=== PATIENT | male | born 1985 | race Caucasian/White ===

== ENCOUNTER 2017-10-06 13:32 | Emergency (ER) | payer SELFPAY ==
[2017-10-06] MEDS ORDERED: SMZ./TMP. 800/160 MG TABLET ONE (15:09)
[2017-10-06] MEDS ORDERED: DOXYCYCLINE 100 MG CAP PO ONE (15:10)
[2017-10-06] MEDS ORDERED: LIDOCAINE 1% W/EPI 1:100,000 MDV 50 ML VIAL ONE (15:10)
[2017-10-06] MEDS ORDERED: CEFAZOLIN/SWI 1gm 1 GM/10 ML SYR ONE (15:11)
[2017-10-06] MEDS ORDERED: NA CHLORIDE 0.9% 1,000 ML ONE (15:11)
[2017-10-06 15:39] LABS: Absolute Lymphocytes (CBC) 2.7 K/uL (0.7-4.9); Absolute Monocytes 0.6 K/uL (0.1-1.3); Absolute Neutrophil 5.6 K/uL (1.8-8.0); Basophils % 1.2 % (0-1.3); Eosinophils % 4.8 % (0-4.4); Hematocrit 46.6 % (39.6-49.0); Lymphocytes % 28.5 % (15.3-44.8); MCV 86.1 fL (80-100); MPV 7.9 fL (7.6-11.3); Monocytes % 6.4 % (3.3-12.3); RBC Red Blood Cell Count 5.41 M/uL (4.33-5.43)
--- NOTE | 2017-10-06 15:40 | RAD REPORT ---
EXAM DESCRIPTION: US - Extremity Nonvascular Limited - 10/06/2017 3:22 pm CLINICAL HISTORY: Palpable abnormality antecubital fossa. COMPARISON: None. TECHNIQUE: Real-time sonographic evaluation of the area of interest was performed. FINDINGS: Prominent skin thickening and subcutaneous edema within the subcutaneous fat and deeper ti ssues noted. Increased blood flow is seen on the Doppler interrogation to the region. This likely rep resents inflammation or infection. Interstitial fluid is present.
--- NOTE | 2017-10-06 15:46 | ER ---
Nurse's Notes [facility] Name: Ruddy Villa Age: 31 yrs Sex: Male : 1985 Arrival Date: 10/06/2017 Time: 13:34 Bed 28 Private MD: Diagnosis: Cutaneous abscess of left upper limb;Abuse of other non-psychoactive substances Presentation: 10/06 13:37 Presenting complaint: Patient states: starting Thursday it felt like a mosquito bite and tw2 it itched, but now its gotten worse and raised and red, its hot to the touch, LEFT AC. Transition of care: patient was not received from another setting of care. Onset of symptoms was October 06, 2017. Care prior to arrival: None. 13:37 Method Of Arrival: Ambulatory tw2 13:37 Acuity: ANASTASIYA 3 tw2 Historical: - Allergies: 13:39 No Known Allergies; tw2 - Home Meds: 13:39 None [Active]; tw2 - PMHx: 13:39 Anxiety; Hypertension; PTSD; tw2 - PSHx: 13:39 None; tw2 - Immunization history:: Adult Immunizations up to date, Last tetanus immunization: up to date. - Social history:: Smoking status: Patient uses tobacco products, denies chronic smoking, but will smoke occasionally, Patient uses street drugs, marijuana. - Family history:: not pertinent. Screenin:11 Abuse screen: Denies threats or abuse. Denies injuries from another. Nutritional aj1 screening: No deficits noted. Tuberculosis screening: No symptoms or risk factors identified. Assessment: 14:11 General: Appears in no apparent distress. uncomfortable, Behavior is calm, cooperative, aj1 appropriate for age. Pain: Complains of pain in left bicep. Neuro: Level of Consciousness is awake, alert, obeys commands, Oriented to person, place, time, situation, Speech is normal, Facial symmetry appears normal. Cardiovascular: Patient's skin is warm and dry. Respiratory: Airway is patent Respiratory effort is even, unlabored, Respiratory pattern is regular, symmetrical. GI: No signs and/or symptoms were reported involving the gastrointestinal system. : No signs and/or symptoms were reported regarding the genitourinary system. EENT: No signs and/or symptoms were reported regarding the EENT system. Derm: Abscess located on left bicep is quarter sized, is hot to touch, is red, is raised. 15:34 Reassessment: Patient and/or family updated on plan of care and expected duration. Pain kb1 level reassessed. Patient is alert, oriented x 3, equal unlabored respirations, skin warm/dry/pink. General: Behavior is anxious. 16:33 Reassessment: Patient appears in no apparent distress at this time. Patient and/or kb1 family updated on plan of care and expected duration. Pain level reassessed. Patient is alert, oriented x 3, equal unlabored respirations, skin warm/dry/pink. Vital Signs: 13:38 BP 123 / 90; Pulse 103; Resp 18; Temp 98.9(O); Pulse Ox 97% on R/A; Weight 94.35 kg; tw2 Height 5 ft. 11 in. (180.34 cm); Pain 8/10; 15:35 BP 149 / 89; Pulse 71; Resp 18; Pulse Ox 98% ; kb1 16:34 BP 128 / 89; Pulse 82; Resp 18; Pulse Ox 100% ; kb1 13:38 Body Mass Index 29.01 (94.35 kg, 180.34 cm) tw2 ED Course: 13:34 Patient arrived in ED. as 13:38 Triage completed. tw2 13:38 Arm band placed on. tw2 13:57 Yumiko Matos, PEDRO LUIS is Primary Nurse. aj1 14:09 Jhoan Anders MD is Attending Physician. prachi 14:11 Patient has correct armband on for positive identification. Bed in low position. Call aj1 light in reach. 14:11 No provider procedures requiring assistance completed. aj1 15:08 Patient taken to ultrasound. via wheelchair. hr 15:21 US Extrmty Nonvasular Limited: left ac abscess In Process Unspecified. EDMS 15:24 Patient moved back from ultrasound. hr 15:30 Inserted saline lock: 20 gauge in right antecubital area, using aseptic technique. kb1 Blood collected. 15:45 Delbert Colbert MD is Referral Physician. prachi 16:37 IV discontinued, intact, bleeding controlled, No redness/swelling at site. Pressure kb1 dressing applied. 16:37 Dressings: non-adherent dressing x 1 left antecubital area. kb1 Administered Medications: 15:37 Drug: NS 0.9% 1000 ml Route: IV; Rate: 1 bolus; Site: right antecubital; kb1 15:37 Drug: Doxycycline 200 mg Route: PO; kb1 16:03 Follow up: Response: No adverse reaction kb1 15:37 Drug: Bactrim (160 mg-800 mg (DS) 1 tablet Route: PO; kb1 16:03 Follow up: Response: No adverse reaction kb1 15:37 Drug: Ancef 1 grams Route: IVPB; Site: right antecubital; kb1 16:03 Follow up: Response: No adverse reaction kb1 15:38 Drug: Lidocaine-Epinephrine -1%: (1:100,000) 10 ml {Note: Placed at bedside for Dr. deny Anders.} Volume: 20 ml; Route: Infiltration; 16:21 Drug: Tetanus-Diphtheria Toxoid Adult 0.5 ml {Parts Fabricator: [employer]. Exp: kb1 01/29/2020. Lot #: [id number]. } Route: IM; Site: right deltoid; 16:34 Follow up: Response: No adverse reaction kb1 Outcome: 15:46 Discharge ordered by . prachi 16:39 Discharged to home ambulatory, with friend. kb1 16:39 Condition: stable 16:39 Discharge instructions given to patient, Instructed on discharge instructions, follow up and referral plans. medication usage, Demonstrated understanding of instructions, follow-up care, medications, Prescriptions given X 3. 16:39 Patient left the ED. kb1 Signatures: Dispatcher [employer] EDYumiko Moraes, RN RN aj1 Jhoan Anders MD MD cha Rod, Haley hr Martinez, Amelia as Wise, Tara, RN RN tw2 Idalia Singleton RN RN kb1
--- NOTE | 2017-10-06 15:46 | EDPHYS ---
Physician Documentation [facility] Name: Ruddy Villa Age: 31 yrs Sex: Male : 1985 Arrival Date: 10/06/2017 Time: 13:34 Bed 28 Private MD: ED Physician Jhoan Anders HPI: 10/06 14:53 This 31 yrs old Male presents to ER via Ambulatory with complaints of prachi Abscess, Arm Pain. 14:53 The patient presents with an abscess of the left antecubital area, The patient presents prachi with cellulitis of the left antecubital area. Description: The affected area is moderate sized, localized, erythematous. Onset: The symptoms/episode began/occurred 4 day(s) ago. Possible cause(s): ivda. Associated signs and symptoms: The patient has no apparent associated signs or symptoms. Severity of symptoms: At their worst the symptoms were moderate, in the emergency department the symptoms are unchanged. The patient has not experienced similar symptoms in the past. Historical: - Allergies: 13:39 No Known Allergies; tw2 - Home Meds: 13:39 None [Active]; tw2 - PMHx: 13:39 Anxiety; Hypertension; PTSD; tw2 - PSHx: 13:39 None; tw2 - Immunization history:: Adult Immunizations up to date, Last tetanus immunization: up to date. - Social history:: Smoking status: Patient uses tobacco products, denies chronic smoking, but will smoke occasionally, Patient uses street drugs, marijuana. - Family history:: not pertinent. ROS: 14:53 Constitutional: Negative for fever, chills, and weight loss, Eyes: Negative for injury, prachi pain, redness, and discharge, ENT: Negative for injury, pain, and discharge, Neck: Negative for injury, pain, and swelling, Cardiovascular: Negative for chest pain, palpitations, and edema, Respiratory: Negative for shortness of breath, cough, wheezing, and pleuritic chest pain, Abdomen/GI: Negative for abdominal pain, nausea, vomiting, diarrhea, and constipation, Back: Negative for injury and pain, : Negative for injury, bleeding, discharge, and swelling, Skin: Negative for injury, rash, and discoloration, Neuro: Negative for headache, weakness, numbness, tingling, and seizure, Psych: Negative for depression, anxiety, suicide ideation, homicidal ideation, and hallucinations, Allergy/Immunology: Negative for hives, rash, and allergies, Endocrine: Negative for neck swelling, polydipsia, polyuria, polyphagia, and marked weight changes, Hematologic/Lymphatic: Negative for swollen nodes, abnormal bleeding, and unusual bruising. 14:53 MS/extremity: Positive for pain, swelling, tenderness, of the left antecubital area. Exam: 14:53 Constitutional: This is a well developed, well nourished patient who is awake, alert, prachi and in no acute distress. Head/Face: Normocephalic, atraumatic. Eyes: Pupils equal round and reactive to light, extra-ocular motions intact. Lids and lashes normal. Conjunctiva and sclera are non-icteric and not injected. Cornea within normal limits. Periorbital areas with no swelling, redness, or edema. ENT: Nares patent. No nasal discharge, no septal abnormalities noted. Tympanic membranes are normal and external auditory canals are clear. Oropharynx with no redness, swelling, or masses, exudates, or evidence of obstruction, uvula midline. Mucous membranes moist. Neck: Trachea midline, no thyromegaly or masses palpated, and no cervical lymphadenopathy. Supple, full range of motion without nuchal rigidity, or vertebral point tenderness. No Meningismus. Chest/axilla: Normal chest wall appearance and motion. Nontender with no deformity. No lesions are appreciated. Cardiovascular: Regular rate and rhythm with a normal S1 and S2. No gallops, murmurs, or rubs. Normal PMI, no JVD. No pulse deficits. Respiratory: Lungs have equal breath sounds bilaterally, clear to auscultation and percussion. No rales, rhonchi or wheezes noted. No increased work of breathing, no retractions or nasal flaring. Abdomen/GI: Soft, non-tender, with normal bowel sounds. No distension or tympany. No guarding or rebound. No evidence of tenderness throughout. Back: No spinal tenderness. No costovertebral tenderness. Full range of motion. Male : Normal genitalia with no discharge or lesions. Skin: Warm, dry with normal turgor. Normal color with no rashes, no lesions, and no evidence of cellulitis. Neuro: Awake and alert, GCS 15, oriented to person, place, time, and situation. Cranial nerves II-XII grossly intact. Motor strength 5/5 in all extremities. Sensory grossly intact. Cerebellar exam normal. Normal gait. Psych: Awake, alert, with orientation to person, place and time. Behavior, mood, and affect are within normal limits. 14:53 Musculoskeletal/extremity: Extremities: grossly normal except: decreased ROM, erythema, pain, swelling, tenderness, ROM: intact in all extremities, full active range of motion, full passive range of motion, Circulation is intact in all extremities. Sensation intact. Joints: All joints appear normal with full range of motion. DVT Exam: negative Homans' sign noted on exam, no appreciated bluish discoloration, pain, swelling, tenderness, erythema, increased warmth. Vital Signs: 13:38 BP 123 / 90; Pulse 103; Resp 18; Temp 98.9(O); Pulse Ox 97% on R/A; Weight 94.35 kg; tw2 Height 5 ft. 11 in. (180.34 cm); Pain 8/10; 15:35 BP 149 / 89; Pulse 71; Resp 18; Pulse Ox 98% ; kb1 16:34 BP 128 / 89; Pulse 82; Resp 18; Pulse Ox 100% ; kb1 13:38 Body Mass Index 29.01 (94.35 kg, 180.34 cm) tw2 Procedures: 14:56 I \T\ D: Incision and drainage was performed for an abscess of the left Prepped with [facility] Betadine, Anesthetized with 10 ml's 1% Lidocaine w/ Epi. Incised with #11 blade. Drained moderate amount Packed with iodoform gauze, Dressing: sterile 4x4 gauze, the patient tolerated the procedure well. MDM: 14:09 Patient medically screened. [facility] 14:56 Data reviewed: vital signs, nurses notes, lab test result(s), radiologic studies, [facility] ultrasound. 10/06 14:53 Order name: CBC with Diff; Complete Time: 16:13 [facility] 10/06 14:53 Order name: Chem 7; Complete Time: 16:13 [facility] 10/06 14:53 Order name: US Extrmty Nonvasular Limited: left ac abscess [facility] 10/06 15:57 Order name: Wound Culture iw 10/06 14:53 Order name: Gloves, Sterile; Complete Time: 15:15 [facility] 10/06 14:53 Order name: Setup Suture Tray; Complete Time: 15:15 prachi Administered Medications: 15:37 Drug: NS 0.9% 1000 ml Route: IV; Rate: 1 bolus; Site: right antecubital; kb1 15:37 Drug: Doxycycline 200 mg Route: PO; kb1 16:03 Follow up: Response: No adverse reaction kb1 15:37 Drug: Bactrim (160 mg-800 mg (DS) 1 tablet Route: PO; kb1 16:03 Follow up: Response: No adverse reaction [facility] 15:37 Drug: Ancef 1 grams Route: IVPB; Site: right antecubital; kb1 16:03 Follow up: Response: No adverse reaction [facility] 15:38 Drug: Lidocaine-Epinephrine -1%: (1:100,000) 10 ml {Note: Placed at bedside for Dr. deny Anders.} Volume: 20 ml; Route: Infiltration; 16:21 Drug: Tetanus-Diphtheria Toxoid Adult 0.5 ml {Staff Research Associate: [employer]. Exp: kb1 01/29/2020. Lot #: [id number]. } Route: IM; Site: right deltoid; 16:34 Follow up: Response: No adverse reaction [facility] Disposition: 10/06/17 15:46 Discharged to Home. Impression: Cutaneous abscess of left upper limb, Abuse of other non-psychoactive substances. - Condition is Stable. - Discharge Instructions: Abscess, Incision and Drainage, Polysubstance Abuse, Abscess, [id number]-Noin. - Prescriptions for Ibuprofen 600 mg Oral Tablet - take 1 tablet by ORAL route every 8 hours As needed take with food; 21 tablet. Doxycycline Hyclate 100 mg Oral Tablet - take 1 tablet by ORAL route every 12 hours; 20 tablet. Bactrim DS 800- 160 mg Oral Tablet - take 1 tablet by ORAL route every 12 hours for 10 days; 20 tablet. - Medication Reconciliation Form, Thank You Letter, Antibiotic Education, Prescription Opioid Use form. - Follow up: Private Physician; When: 2 - 3 days; Reason: Recheck today's complaints, Continuance of care, Re-evaluation by your physician. Follow up: Delbert Colbert MD; When: 2 - 3 days; Reason: Recheck today's complaints, Re-evaluation by your physician. - Problem is new. - Symptoms have improved. Signatures: Dispatcher [employer] Jhoan Menard MD MD cha Wise, Tara, RN RN tw2 Idalia Singleton, RN RN kb1
[2017-10-06 15:49] LABS: Bicarbonate 32 mEq/L (21-31); Glucose Level 106 mg/dL (65-120); Potassium 3.7 mEq/L (3.6-5.0); Sodium Level 140 mEq/L (135-145)
[2017-10-06 15:50] LABS: BUN Blood Urea Nitrogen 11 mg/dL (6-20)
[2017-10-06] MEDS ORDERED: TETANUS & DIPHTHERIA TOX,ADULT 0.5 ML VIAL ONE (16:16)
== END 2017-10-06 16:39 | disposition home or self-care (01) ==
LOC: ER 13:32
DX: L02.414 Cutaneous abscess of left upper limb (principal); F55.8 Abuse of other non-psychoactive substances; F17.220 Nicotine dependence, chewing tobacco, uncomplicated
CPT/HCPCS: 36415; 76882; 80048; 85025; 87070; 87205; 90714; 96374; 99284; J0690; J7030

== ENCOUNTER 2017-10-21 11:08 | Emergency (ER) | payer SELFPAY ==
--- NOTE | 2017-10-21 13:06 | ER ---
Nurse's Notes [facility] Name: Ruddy Villa Age: 31 yrs Sex: Male : 1985 Arrival Date: 10/21/2017 Time: 11:11 Bed Waiting Private MD: Diagnosis: Presentation: 10/21 11:20 Presenting complaint: Patient states: Pain to left eye since yesterday. Reports left aj eye was matted upon waking up this AM. Patient would also like a return to work note from his last visit to this ER. Transition of care: patient was not received from another setting of care. Onset of symptoms was October 21, 2017. Initial Sepsis Screen: Does the patient meet any 2 criteria? No. Patient's initial sepsis screen is negative. Does the patient have a suspected source of infection? No. Patient's initial sepsis screen is negative. Care prior to arrival: None. 11:20 Method Of Arrival: Ambulatory aj 11:20 Acuity: ANASTASIYA 5 aj Triage Assessment: 11:21 General: Appears in no apparent distress. comfortable, Behavior is calm, cooperative, aj appropriate for age. Pain: Complains of pain in left eye. Neuro: Level of Consciousness is awake, alert, obeys commands, Oriented to person, place, time, situation, Appropriate for age. Respiratory: Airway is patent Respiratory effort is even, unlabored, Respiratory pattern is regular, symmetrical. Derm: Skin is intact, is healthy with good turgor, Skin is pink, warm \T\ dry. normal. Historical: - Allergies: 11:21 No Known Allergies; aj - PMHx: 11:21 Anxiety; Hypertension; PTSD; aj - PSHx: 11:21 None; aj - Immunization history:: Adult Immunizations up to date. - Social history:: Smoking status: Patient uses tobacco products, smokes one pack cigarettes per day. Assessment: 13:03 Reassessment: called twice, no answer from lobby. tw2 Vital Signs: 11:21 BP 131 / 82; Pulse 97; Resp 17; Temp 99.0; Pulse Ox 98% on R/A; Weight 95.25 kg; Height aj 5 ft. 10 in. (177.80 cm); Pain 6/10; 11:21 Body Mass Index 30.13 (95.25 kg, 177.80 cm) ED Course: 11:11 Patient arrived in ED. sb2 11:21 Triage completed. aj 11:21 Arm band placed on left wrist. Patient placed in waiting room, Patient notified of wait aj time. 12:59 Yi Fleming, RN is Primary Nurse. kr2 Administered Medications: No medications were administered Outcome: 13:06 Patient left the ED. tw2 Signatures: Leona Echavarria RN RN Suha Rivera RN RN tw2 Yi Fleming, RN RN kr2 Mariajose Hussein sb2 Corrections: (The following items were deleted from the chart) 11:23 11:20 Presenting complaint: Patient states: Pain to left eye since yesterday. Reports aj left eye was matted upon waking up aj
== END 2017-10-21 13:06 | disposition left against medical advice (07) ==
LOC: ER 11:08
DX: Z02.9 Encounter for administrative examinations, unspecified (principal)
CPT/HCPCS: 99281

== ENCOUNTER 2017-10-21 17:40 | Emergency (ER) | payer SELFPAY ==
[2017-10-21] MEDS ORDERED: FLUORESCEIN SODIUM 0.6 MG/WRAP ONE (18:21)
[2017-10-21] MEDS ORDERED: TETRACAINE HCL 0.5% 2ML OPTH ONE (18:22)
--- NOTE | 2017-10-21 18:32 | EDPHYS ---
Physician Documentation [facility] Name: Ruddy Villa Age: 31 yrs Sex: Male : 1985 Arrival Date: 10/21/2017 Time: 17:41 Bed 13 Private MD: ED Physician Placido Hussein HPI: 10/21 18:29 This 31 yrs old Male presents to ER via Ambulatory with complaints of Eye jr8 Pain, Redness of Eye. 18:29 The patient is experiencing pain, redness, tearing. Onset: The symptoms/episode jr8 began/occurred gradually, 2 day(s) ago. Duration: the symptoms are continuous. Aggravated by nothing. Alleviated by nothing. Associated signs and symptoms: Pertinent positives: None. Patient does not utilize any form of vision correction. Severity of symptoms: At their worst the symptoms were mild in the emergency department the symptoms are unchanged. The patient has not experienced similar symptoms in the past. The patient has not recently seen a physician. Historical: - Allergies: 17:50 No Known Allergies; aj - Home Meds: 17:50 None [Active]; aj - PMHx: 17:50 Anxiety; Hypertension; PTSD; aj - PSHx: 17:50 None; aj - Immunization history:: Adult Immunizations up to date, Last tetanus immunization: up to date. - Social history:: Smoking status: Patient uses tobacco products, smokes one-half pack cigarettes per day. ROS: 18:29 ENT: Negative for injury, pain, and discharge, Neck: Negative for injury, pain, and jr8 swelling, Cardiovascular: Negative for chest pain, palpitations, and edema, Respiratory: Negative for shortness of breath, cough, wheezing, and pleuritic chest pain, Abdomen/GI: Negative for abdominal pain, nausea, vomiting, diarrhea, and constipation, Back: Negative for injury and pain, MS/Extremity: Negative for injury and deformity, Skin: Negative for injury, rash, and discoloration, Neuro: Negative for headache, weakness, numbness, tingling, and seizure. 18:29 Eyes: Positive for pain, redness, tearing, of the left eye. Exam: 18:29 Head/Face: Normocephalic, atraumatic. ENT: Nares patent. No nasal discharge, no jr8 septal abnormalities noted. Tympanic membranes are normal and external auditory canals are clear. Oropharynx with no redness, swelling, or masses, exudates, or evidence of obstruction, uvula midline. Mucous membranes moist. Neck: Trachea midline, no thyromegaly or masses palpated, and no cervical lymphadenopathy. Supple, full range of motion without nuchal rigidity, or vertebral point tenderness. No Meningismus. Cardiovascular: Regular rate and rhythm with a normal S1 and S2. No gallops, murmurs, or rubs. Normal PMI, no JVD. No pulse deficits. Respiratory: Lungs have equal breath sounds bilaterally, clear to auscultation and percussion. No rales, rhonchi or wheezes noted. No increased work of breathing, no retractions or nasal flaring. Skin: Warm, dry with normal turgor. Normal color with no rashes, no lesions, and no evidence of cellulitis. MS/ Extremity: Pulses equal, no cyanosis. Neurovascular intact. Full, normal range of motion. Neuro: Awake and alert, GCS 15, oriented to person, place, time, and situation. Cranial nerves II-XII grossly intact. Motor strength 5/5 in all extremities. Sensory grossly intact. Cerebellar exam normal. Normal gait. 18:29 Eyes: Periorbital structures: appear normal, Pupils: equal, round, and reactive to light and accomodation, Extraocular movements: intact throughout, Conjunctiva: injected, in the left eye, tearing noted, in left eye, Corneas: abrasion, is not appreciated, foreign body, is not appreciated, a fluorescein strip employed to appreciate the findings, Sclera: no appreciated abnormality, Anterior chamber: normal, Lids and lashes: appear normal, Examination of the other eye reveals no obvious gross abnormality. Vital Signs: 17:50 BP 131 / 93; Pulse 122; Resp 19; Temp 99.2; Pulse Ox 97% on R/A; Weight 95.25 kg; aj Height 5 ft. 11 in. (180.34 cm); 17:50 Body Mass Index 29.29 (95.25 kg, 180.34 cm) aj MDM: 17:53 Patient medically screened. [facility] 18:29 Data reviewed: vital signs, nurses notes, and as a result, I will discharge patient. jr8 Data interpreted: Pulse oximetry: on room air is 97 %. Interpretation: normal. Counseling: I had a detailed discussion with the patient and/or guardian regarding: the historical points, exam findings, and any diagnostic results supporting the discharge/admit diagnosis, the need for outpatient follow up, an opthalmologist, to return to the emergency department if symptoms worsen or persist or if there are any questions or concerns that arise at home. Administered Medications: 18:30 Drug: Tetracaine Drops 0.5 % 1 drops {Note: adminstered by PA. Yuniel} Route: jl7 Ophthalmic; Site: left eye; Disposition: 19:03 Co-signature as Attending Physician, Placido Hussein MD. rn Disposition: 10/21/17 18:31 Discharged to Home. Impression: Conjunctivitis. - Condition is Stable. - Discharge Instructions: Conjunctivitis (Viral and Bacterial). - Prescriptions for Gentamicin 0.3 % Ophthalmic Drops - instill 2 drop by OPHTHALMIC route every 4 hours; 1 bottle. - Work release form, Medication Reconciliation Form, Thank You Letter, Antibiotic Education, Prescription Opioid Use form. - Follow up: Private Physician; When: 1 week; Reason: Recheck today's complaints, Continuance of care, Re-evaluation by your physician. - Problem is new. - Symptoms have improved. Signatures: Leona Echavarria, RN Placido Knutson MD MD rn Roszak, Josh, PA PA jr8 Marguerite Walker RN RN jl7
--- NOTE | 2017-10-21 18:32 | ER ---
Nurse's Notes [facility] Name: Ruddy Villa Age: 31 yrs Sex: Male : 1985 Arrival Date: 10/21/2017 Time: 17:41 Bed 13 Private MD: Diagnosis: Conjunctivitis Presentation: 10/21 17:49 Presenting complaint: Patient states: Left eye pain and redness since yesterday. aj Patient suspects something was in his eye. Transition of care: patient was not received from another setting of care. Mechanism of Injury: No Mechanism of Injury. The patient denies any loss of vision. Onset of symptoms was October 19, 2017. Initial Sepsis Screen: Does the patient meet any 2 criteria? No. Patient's initial sepsis screen is negative. Does the patient have a suspected source of infection? No. Patient's initial sepsis screen is negative. Care prior to arrival: None. 17:49 Method Of Arrival: Ambulatory 17:49 Acuity: ANASTASIYA 4 Triage Assessment: 17:50 General: Appears in no apparent distress. comfortable, Behavior is calm, cooperative, aj appropriate for age. Pain: Complains of pain in left eye Pain currently is 7 out of 10 on a pain scale. EENT: Reports pain in left eye. Neuro: Level of Consciousness is awake, alert, obeys commands, Oriented to person, place, time, situation, Appropriate for age. Respiratory: Airway is patent Respiratory effort is even, unlabored, Respiratory pattern is regular, symmetrical. Derm: Skin is intact, is healthy with good turgor, Skin is pink, warm \\T\\ dry. normal. Historical: - Allergies: 17:50 No Known Allergies; - Home Meds: 17:50 None [Active]; aj - PMHx: 17:50 Anxiety; Hypertension; PTSD; aj - PSHx: 17:50 None; aj - Immunization history:: Adult Immunizations up to date, Last tetanus immunization: up to date. - Social history:: Smoking status: Patient uses tobacco products, smokes one-half pack cigarettes per day. Screenin:20 Abuse screen: Denies threats or abuse. Denies injuries from another. Nutritional jl7 screening: No deficits noted. Tuberculosis screening: No symptoms or risk factors identified. Fall Risk None identified. Assessment: 18:20 General: Appears in no apparent distress. uncomfortable. Pain: Complains of pain in jl7 left eye Pain does not radiate. Pain currently is 6 out of 10 on a pain scale. at worst was 10 out of 10 on a pain scale. Quality of pain is described as burning, Pain began 2-3 days ago. Is continuous. Neuro: Level of Consciousness is awake, alert, obeys commands, Oriented to person, place, time, situation. Cardiovascular: Patient's skin is warm and dry. Respiratory: Airway is patent Respiratory effort is even, unlabored, Respiratory pattern is regular, symmetrical. EENT: Eyes pt reports "It feels scratchy and like there's something in there.". Sclera/Cornea are reddened in outer aspect of conjuctiva of left eye and inner aspect of conjunctiva of left eye. Vital Signs: 17:50 BP 131 / 93; Pulse 122; Resp 19; Temp 99.2; Pulse Ox 97% on R/A; Weight 95.25 kg; aj Height 5 ft. 11 in. (180.34 cm); 17:50 Body Mass Index 29.29 (95.25 kg, 180.34 cm) aj ED Course: 17:41 Patient arrived in ED. as 17:50 Triage completed. aj 17:50 Arm band placed on left wrist. Patient placed in an exam room. 17:53 Aleaxndr Brice [facility] 17:53 Placido Hussein MD is Attending Physician. [facility] 18:11 Marguerite Walker, PDERO LUIS is Primary Nurse. [facility] 18:20 Patient has correct armband on for positive identification. Bed in low position. Call [facility] light in reach. Side rails up X 1. Pulse ox on. NIBP on. 18:30 Assist provider with eye exam of left eye. using fluorescein stain, Performed by Alexandr CHEEK Patient tolerated well. 18:34 Patient did not have IV access during this emergency room visit. bernard Administered Medications: 18:30 Drug: Tetracaine Drops 0.5 % 1 drops {Note: adminstered by HAM Brice.} Route: bernard Ophthalmic; Site: left eye; Outcome: 18:31 Discharge ordered by . lara 18:38 Discharged to home ambulatory. Shan 18:38 Condition: stable 18:38 Discharge instructions given to patient, Instructed on discharge instructions, follow up and referral plans. medication usage, Demonstrated understanding of instructions, follow-up care, medications, Prescriptions given X 1. 18:45 Patient left the ED. jl7 Signatures: Leona Echavarria, RN RN Wendy Carter Josh, PA PA jr8 Leal, Jahala, RN RN jl7 Corrections: (The following items were deleted from the chart) 18:37 18:34 No provider procedures requiring assistance completed. jl7 jl7
== END 2017-10-21 18:45 | disposition home or self-care (01) ==
LOC: ER 17:40
DX: H10.32 Unspecified acute conjunctivitis, left eye (principal)
CPT/HCPCS: 99284

== ENCOUNTER 2017-12-09 00:39 | Emergency (ER) | payer SELFPAY ==
[2017-12-09] MEDS ORDERED: NA CHLORIDE 0.9% 1,000 ML ONE (00:49)
[2017-12-09 01:04] LABS: Absolute Lymphocytes (CBC) 3.2 K/uL (0.7-4.9); Absolute Monocytes 0.5 K/uL (0.1-1.3); Absolute Neutrophil 4.2 K/uL (1.8-8.0); Basophils % 0.8 % (0-1.3); Eosinophils % 5.4 % (0-4.4); Hematocrit 45.8 % (39.6-49.0); Lymphocytes % 37.6 % (15.3-44.8); MCH 29.8 pg (27.0-35.0); MCV 88.1 fL (80-100); MPV 7.7 fL (7.6-11.3); Monocytes % 5.8 % (3.3-12.3)
[2017-12-09 01:08] LABS: Potassium 3.6 mEq/L (3.6-5.0)
[2017-12-09] MEDS ORDERED: ONDANSETRON 4 MG/2 ML VIAL ONE (01:08)
[2017-12-09] MEDS ORDERED: MORPHINE 4 MG/ML SYR ONE (01:23)
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
[2017-12-09] MEDS ORDERED: HYDROCODONE/APAP 7.5/325 MG TAB ONE (03:47)
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
== END 2017-12-09 03:48 | disposition home or self-care (01) ==
LOC: ER 00:39
DX: S42.001A Fracture of unspecified part of right clavicle, initial encounter for closed fracture (principal); V28.4XXA Motorcycle driver injured in noncollision transport accident in traffic accident, initial encounter; I10 Essential (primary) hypertension
CPT/HCPCS: 36415; 70450; 71260; 72125; 74177; 80048; 85025; 96361; 96374; 96375; 99285; J2405; J7030; Q9967

== ENCOUNTER 2019-03-03 08:42 | Emergency (ER) | payer SELFPAY ==
[2019-03-03] MEDS ORDERED: NA CHLORIDE 0.9% 2,000 ML ONE (09:04)
[2019-03-03] MEDS ORDERED: ONDANSETRON 4 MG/2 ML VIAL ONE (09:04)
[2019-03-03 09:31] LABS: Absolute Lymphocytes (CBC) 1.3 K/uL (0.7-4.9); Basophils % 0.6 % (0-1.3); Hematocrit 42.2 % (39.6-49.0); Lymphocytes % 17.5 % (15.3-44.8); MPV 8.4 fL (7.6-11.3); RBC Red Blood Cell Count 4.83 M/uL (4.33-5.43)
[2019-03-03 09:47] LABS: ALT/SGPT 81 U/L (12-78); AST/SGOT 26 U/L (15-37); Albumin 3.7 g/dL (3.4-5.0); Alkaline Phosphatase 44 U/L (45-117); BUN Blood Urea Nitrogen 12 mg/dL (7-18); Bicarbonate 27 mmol/L (21-32); Bilirubin Direct 0.1 mg/dL (0-0.2); Bilirubin Total 0.2 mg/dL (0.2-1.0); Glucose Level 85 mg/dL (74-106); Lipase 408 U/L (73-393); Potassium 4.1 mmol/L (3.5-5.1); Protein, Total 6.7 g/dL (6.4-8.2); Sodium Level 144 mmol/L (136-145)
--- NOTE | 2019-03-03 10:47 | RAD REPORT ---
EXAM DESCRIPTION: CTAbdomen Pelvis W Contrast - 03/03/2019 10:05 am CLINICAL HISTORY: Abdominal pain. Abd pain;Nausea / vomiting COMPARISON: <Comparisons> TECHNIQUE: Biphasic CT imaging of the abdomen and pelvis was performed with 100 ml non-ionic IV cont rast. All CT scans are performed using dose optimization technique as appropriate and may include automated exposure control or mA/KV adjustment according to patient size. FINDINGS: The lung bases are clear. Mild periportal edema is seen in the liver. No biliary dilatation or focal liver mass. Spleen, pancre as, adrenal glands and kidneys are within normal limits. No bowel obstruction, free air, free fluid or abscess. The appendix is normal. No evidence of signi ficant lymphadenopathy. No suspicious bony findings. IMPRESSION: Mild periportal edema in the liver seen, suggest correlation with liver function tests. Elsewhere, no acute process demonstrated.
--- NOTE | 2019-03-03 11:53 | ER ---
Nurse's Notes [facility] Name: Ruddy Villa Age: 33 yrs Sex: Male : 1985 Arrival Date: 03/03/2019 Time: 08:44 Bed 17 Private MD: Diagnosis: Vomiting, unspecified;Diarrhea, unspecified Presentation: 03/03 08:59 Presenting complaint: N/V/D and upper abdominal pain x 1 week. Transition of care: hb patient was not received from another setting of care. Onset of symptoms was February 24, 2019. Risk Assessment: Do you want to hurt yourself or someone else? Patient reports no desire to harm self or others. Initial Sepsis Screen: Does the patient meet any 2 criteria? No. Patient's initial sepsis screen is negative. Does the patient have a suspected source of infection? No. Patient's initial sepsis screen is negative. Care prior to arrival: None. 08:59 Method Of Arrival: Ambulatory 08:59 Acuity: ANASTASIYA 3 hb Historical: - Allergies: 09:00 No Known Allergies; hb - Home Meds: 09:00 None [Active]; hb - PMHx: 09:00 Anxiety; Hypertension; PTSD; hb - PSHx: 09:00 Appendectomy; Hand - Right; hb - Immunization history:: Adult Immunizations up to date. - Social history:: Smoking status: Patient/guardian denies using tobacco. - Ebola Screening: : No symptoms or risks identified at this time. - Family history:: not pertinent. - Hospitalizations: : No recent hospitalization is reported. Screenin:01 Abuse screen: Denies threats or abuse. Denies injuries from another. Nutritional hb screening: No deficits noted. Tuberculosis screening: No symptoms or risk factors identified. Fall Risk None identified. Assessment: 09:01 General: see triage assessment. hb 10:00 Reassessment: Patient appears in no apparent distress at this time. Patient and/or hb family updated on plan of care and expected duration. Pain level reassessed. Patient is alert, oriented x 3, equal unlabored respirations, skin warm/dry/pink. 11:00 Reassessment: Patient appears in no apparent distress at this time. Patient and/or hb family updated on plan of care and expected duration. Pain level reassessed. Patient is alert, oriented x 3, equal unlabored respirations, skin warm/dry/pink. 12:00 Reassessment: Patient appears in no apparent distress at this time. Patient and/or hb family updated on plan of care and expected duration. Pain level reassessed. Patient is alert, oriented x 3, equal unlabored respirations, skin warm/dry/pink. Vital Signs: 09:00 BP 102 / 64; Pulse 69; Resp 16; Temp 98.1; Pulse Ox 100% on R/A; Weight 83.91 kg; hb Height 5 ft. 10 in. (177.80 cm); Pain 6/10; 10:00 BP 116 / 68; Pulse 59; Resp 15; Pulse Ox 99% ; hb 11:15 BP 113 / 69; Pulse 61; Resp 14; Pulse Ox 100% on R/A; hb 12:00 BP 118 / 69; Pulse 59; Resp 15; Pulse Ox 100% on R/A; hb 09:00 Body Mass Index 26.54 (83.91 kg, 177.80 cm) hb ED Course: 08:44 Patient arrived in ED. rg4 08:51 Placido Hussein MD is Attending Physician. rn 08:58 Nichole Marquez, PEDRO LUIS is Primary Nurse. hb 08:59 Triage completed. hb 09:00 Arm band placed on. hb 09:01 Patient has correct armband on for positive identification. Bed in low position. Call hb light in reach. Side rails up X 1. 09:19 Inserted saline lock: 20 gauge in right antecubital area, using aseptic technique. hb ,using aseptic technique. by Darryn RN Blood collected. 10:07 CT Abd/Pelvis - IV Contrast Only In Process Unspecified. EDMS 12:11 No provider procedures requiring assistance completed. IV discontinued, intact, hb bleeding controlled, No redness/swelling at site. Pressure dressing applied. Administered Medications: 09:18 Drug: Zofran 4 mg Route: IVP; Site: right antecubital; hb 10:00 Follow up: Response: No adverse reaction hb 09:19 Drug: NS 0.9% 1000 ml Route: IV; Rate: 1000 ml; Site: right antecubital; hb 10:40 Follow up: Response: No adverse reaction; IV Status: Completed infusion; IV Intake: hb 1000ml 09:19 Drug: NS 0.9% 1000 ml Route: IV; Rate: 1000 ml; Site: right antecubital; hb 10:35 Follow up: Response: No adverse reaction; IV Status: Completed infusion; IV Intake: hb 1000ml 12:02 Drug: LoMOTIL 2 tabs Route: PO; hb 12:05 Follow up: Response: Medication administered at discharge. hb Intake: 10:35 IV: 1000ml; Total: 1000ml. hb 10:40 IV: 1000ml; Total: 2000ml. hb Outcome: 11:52 Discharge ordered by . rn 12:11 Discharged to home ambulatory. hb 12:11 Condition: stable 12:11 Discharge instructions given to patient, Instructed on discharge instructions, follow up and referral plans. medication usage, Demonstrated understanding of instructions, follow-up care, medications, Prescriptions given X 4. 12:11 Patient left the ED. hb Signatures: Dispatcher [employer] EDPlacido Wallace MD MD rn Baxter, Heather, RN RN hb Garcia, Rubi rg4
--- NOTE | 2019-03-03 11:53 | EDPHYS ---
Physician Documentation [facility] Name: Ruddy Villa Age: 33 yrs Sex: Male : 1985 Arrival Date: 03/03/2019 Time: 08:44 Bed 17 Private MD: ED Physician Placido Hussein HPI: 03/03 10:34 This 33 yrs old Male presents to ER via Ambulatory with complaints of rn Vomiting/Diarrhea. 10:34 The patient presents to the emergency department with nausea, vomiting, diarrhea, rn abdominal pain. Onset: The symptoms/episode began/occurred 1 week(s) ago. Possible causes: unknown. The symptoms are aggravated by nothing. The symptoms are alleviated by nothing. Severity of symptoms: At their worst the symptoms were moderate in the emergency department the symptoms are unchanged. The patient has not experienced similar symptoms in the past. The patient has not recently seen a physician. Historical: - Allergies: 09:00 No Known Allergies; hb - Home Meds: 09:00 None [Active]; hb - PMHx: 09:00 Anxiety; Hypertension; PTSD; hb - PSHx: 09:00 Appendectomy; Hand - Right; hb - Immunization history:: Adult Immunizations up to date. - Social history:: Smoking status: Patient/guardian denies using tobacco. - Ebola Screening: : No symptoms or risks identified at this time. - Family history:: not pertinent. - Hospitalizations: : No recent hospitalization is reported. ROS: 10:34 Constitutional: Negative for fever, chills, and weight loss, Eyes: Negative for injury, rn pain, redness, and discharge, Neck: Negative for injury, pain, and swelling, Cardiovascular: Negative for chest pain, palpitations, and edema, Respiratory: Negative for shortness of breath, cough, wheezing, and pleuritic chest pain, Abdomen/GI: Negative for constipation MS/Extremity: Negative for injury and deformity, Skin: Negative for injury, rash, and discoloration, Neuro: Negative for headache, weakness, numbness, tingling, and seizure. Exam: 10:34 Constitutional: This is a well developed, well nourished patient who is awake, alert, rn and in no acute distress. Head/Face: Normocephalic, atraumatic. Eyes: Pupils equal round and reactive to light, extra-ocular motions intact. Lids and lashes normal. Conjunctiva and sclera are non-icteric and not injected. Cornea within normal limits. Periorbital areas with no swelling, redness, or edema. ENT: dry MM Cardiovascular: Regular rate and rhythm. No pulse deficits. Respiratory: No increased work of breathing, no retractions or nasal flaring. Abdomen/GI: soft, mild mid abd tenderness and epigastric tenderness MS/ Extremity: Pulses equal, no cyanosis. Neurovascular intact. Full, normal range of motion. Equal circumference. Neuro: Awake and alert, GCS 15, oriented to person, place, time, and situation. Cranial nerves II-XII grossly intact. Motor strength 5/5 in all extremities. Sensory grossly intact. Cerebellar exam normal. Normal gait. Vital Signs: 09:00 BP 102 / 64; Pulse 69; Resp 16; Temp 98.1; Pulse Ox 100% on R/A; Weight 83.91 kg; hb Height 5 ft. 10 in. (177.80 cm); Pain 6/10; 10:00 BP 116 / 68; Pulse 59; Resp 15; Pulse Ox 99% ; hb 11:15 BP 113 / 69; Pulse 61; Resp 14; Pulse Ox 100% on R/A; hb 12:00 BP 118 / 69; Pulse 59; Resp 15; Pulse Ox 100% on R/A; hb 09:00 Body Mass Index 26.54 (83.91 kg, 177.80 cm) hb MDM: 08:51 Patient medically screened. rn 11:50 Differential diagnosis: Nonspecific abd pain, gastritis, pancreatitis, viral rn gastroenteritis, gastroenteritis. Data reviewed: vital signs, nurses notes, lab test result(s), radiologic studies, CT scan, and as a result, I will discharge patient. Counseling: I had a detailed discussion with the patient and/or guardian regarding: the historical points, exam findings, and any diagnostic results supporting the discharge/admit diagnosis, lab results, radiology results, the need for outpatient follow up, to return to the emergency department if symptoms worsen or persist or if there are any questions or concerns that arise at home. Response to treatment: the patient's symptoms have markedly improved after treatment, and as a result, I will discharge patient. Special discussion: I discussed with the patient/guardian in detail that at this point there is no indication for admission to the hospital. It is understood, however, that if the symptoms persist or worsen the patient needs to return immediately for re-evaluation. ED course: Pt improved, ct no acute findings other than non-specific periportal edema, no trauma, no other findings, mild elevation of lipase but not high enough to call acute pancreatitis. Will dc home with return precautions, anti-emetics, and abx.. 03/03 08:59 Order name: Basic Metabolic Panel; Complete Time: 10:05 rn 03/03 08:59 Order name: CBC with Diff; Complete Time: 10: rn 03/03 08:59 Order name: Creatinine for Radiology; Complete Time: 10: rn 03/03 08:59 Order name: Hepatic Function; Complete Time: 10: rn 03/03 08:59 Order name: Lipase; Complete Time: 10: rn 03/03 08:59 Order name: CT Abd/Pelvis - IV Contrast Only; Complete Time: 11:00 rn 03/03 08:59 Order name: IV Saline Lock; Complete Time: 09:19 rn 03/03 08:59 Order name: Labs collected and sent; Complete Time: 09:19 rn Administered Medications: 09:18 Drug: Zofran 4 mg Route: IVP; Site: right antecubital; hb 10:00 Follow up: Response: No adverse reaction hb 09:19 Drug: NS 0.9% 1000 ml Route: IV; Rate: 1000 ml; Site: right antecubital; hb 10:40 Follow up: Response: No adverse reaction; IV Status: Completed infusion; IV Intake: hb 1000ml 09:19 Drug: NS 0.9% 1000 ml Route: IV; Rate: 1000 ml; Site: right antecubital; hb 10:35 Follow up: Response: No adverse reaction; IV Status: Completed infusion; IV Intake: hb 1000ml 12:02 Drug: LoMOTIL 2 tabs Route: PO; hb 12:05 Follow up: Response: Medication administered at discharge. hb Disposition: 03/03/19 11:52 Discharged to Home. Impression: Vomiting, unspecified, Diarrhea, unspecified. - Condition is Stable. - Discharge Instructions: Diarrhea, Adult, Nausea and Vomiting, Adult. - Prescriptions for Zofran ODT 4 mg Oral tablet,disintegrating - place 1 tablet by TRANSLINGUAL route every 8 hours As needed; 20 tablet. Cipro 500 mg Oral Tablet - take 1 tablet by ORAL route every 12 hours for 10 days; 20 tablet. Flagyl 500 mg Oral Tablet - take 1 tablet by ORAL route every 8 hours for 10 days; 30 tablet. Tylenol- Codeine #3 300-30 mg Oral Tablet - take 2 tablet by ORAL route every 6 hours As needed; 20 tablet. - Medication Reconciliation Form, Thank You Letter, Antibiotic Education, Prescription Opioid Use, Work release form form. - Follow up: Private Physician; When: As needed; Reason: Recheck today's complaints, Re-evaluation by your physician. - Problem is new. - Symptoms have improved. Signatures: Dispatcher [employer] EDMS Placido Hussein MD MD rn Baxter, Heather, RN RN hb Corrections: (The following items were deleted from the chart) 12:11 11:52 03/03/2019 11:52 Discharged to Home. Impression: Vomiting, unspecified; Diarrhea, hb unspecified. Condition is Stable. Forms are Medication Reconciliation Form, Thank You Letter, Antibiotic Education, Prescription Opioid Use. Follow up: Private Physician; When: As needed; Reason: Recheck today's complaints, Re-evaluation by your physician. Problem is new. Symptoms have improved. rn
[2019-03-03] MEDS ORDERED: DIPHENOX/ATROP SULF 1 TAB PO ONE (12:04)
== END 2019-03-03 12:11 | disposition home or self-care (01) ==
LOC: ER 08:42
DX: R19.7 Diarrhea, unspecified (principal); I10 Essential (primary) hypertension
CPT/HCPCS: 36415; 74177; 80048; 80076; 83690; 85025; 96361; 96374; 99284; J2405; J7030; Q9967

== ENCOUNTER 2019-05-31 04:21 | Emergency (ER) | payer OTHER ==
[2019-05-31] MEDS ORDERED: LORazepam 2 MG/ML VIAL ONE (04:31)
[2019-05-31 05:13] LABS: Absolute Lymphocytes (CBC) 1.9 K/uL (0.7-4.9); Hematocrit 40.1 % (39.6-49.0); RBC Red Blood Cell Count 4.72 M/uL (4.33-5.43)
[2019-05-31 05:29] LABS: Protime INR 1.15
[2019-05-31 05:35] LABS: ALT/SGPT 65 U/L (12-78); AST/SGOT 47 U/L (15-37); Albumin 4.4 g/dL (3.4-5.0); Alkaline Phosphatase 44 U/L (45-117); BUN Blood Urea Nitrogen 20 mg/dL (7-18); Bicarbonate 27 mmol/L (21-32); Bilirubin Direct 0.3 mg/dL (0-0.2); Glucose Level 53 mg/dL (74-106); Potassium 3.2 mmol/L (3.5-5.1); Protein, Total 7.6 g/dL (6.4-8.2); Sodium Level 136 mmol/L (136-145)
[2019-05-31] MEDS ORDERED: D50W 25 GM/50 ML SYRINGE/VIAL IV ONE (06:13)
--- NOTE | 2019-05-31 08:01 | EKG ---
Test Date: 2019-05-31 Test Time: 04:57:24 Paralegal Supervisor: PAWEL MEASUREMENT RESULTS: Intervals: Rate: 81 MT: 120 QRSD: 110 QT: 378 QTc: 439 [place]: P: 9 MT: 120 QRS: 47 T: 37 INTERPRETIVE STATEMENTS: Normal sinus rhythm Normal ECG Compared to ECG 03/29/2017 13:04:29 Sinus arrhythmia no longer present Electronically Signed On 05-31-19 08:00:18 FOUNDRY PATTERNMAKER by Clovis Cosme
[2019-05-31 11:36] LABS: Barbiturates NEGATIVE (NEGATIVE); Benzodiazepines NEGATIVE (NEGATIVE); Cocaine NEGATIVE (NEGATIVE); METHAMPHETAM POSITIVE (NEGATIVE); Methadone NEGATIVE (NEGATIVE); Opiates NEGATIVE (NEGATIVE); Phencyclidine NEGATIVE (NEGATIVE); THC Cannibis POSITIVE (NEGATIVE)
[2019-05-31] MEDS ORDERED: DIAZEPAM 5 MG TABLET ONE (12:56)
--- NOTE | 2019-05-31 14:14 | ER ---
Nurse's Notes [facility] Name: Ruddy Villa Age: 33 yrs Sex: Male : 1985 Arrival Date: 05/31/2019 Time: 04:22 Bed 6 Private MD: Diagnosis: Restlessness and agitation Presentation: 05/31 04:22 Presenting complaint: EMS states: they were toned out by PD for pt with "excited bb delirium", auditory and visual hallucinations. Pt went to PD to report problems with neighbors. Transition of care: patient was not received from another setting of care. Onset of symptoms was May 31, 2019. Risk Assessment: Do you want to hurt yourself or someone else? Unable to obtain. Initial Sepsis Screen: Does the patient meet any 2 criteria? No. Patient's initial sepsis screen is negative. Does the patient have a suspected source of infection? No. Patient's initial sepsis screen is negative. Care prior to arrival: None. 04:22 Method Of Arrival: EMS: [facility] bb 04:22 Acuity: ANASTASIYA 2 bb Historical: - Allergies: 04:26 cats; bb - Home Meds: 04:26 Unable to obtain [Active]; bb - PMHx: 04:26 Anxiety; Hypertension; PTSD; bb - PSHx: 04:26 Appendectomy; Hand - Right; bb - Immunization history:: Adult Immunizations unknown. - Social history:: Smoking status: unknown. - Ebola Screening: : No symptoms or risks identified at this time No symptoms or risks identified at this time. Screenin:35 Abuse screen: Denies threats or abuse. Nutritional screening: No deficits noted. ea Tuberculosis screening: No symptoms or risk factors identified. Fall Risk IV access (20 points). Assessment: 04:27 General: Appears uncomfortable, Behavior is anxious, restless. Pain: Denies pain. ea Neuro: Neuro: Level of Consciousness is awake, alert, obeys commands, Oriented to person, place, time, situation. Cardiovascular: Patient's skin is warm and dry. Respiratory: Airway is patent Respiratory effort is even, unlabored, Respiratory pattern is regular, symmetrical. Derm: Skin is pink, warm \\T\\ dry. 05:12 Reassessment: Patient and/or family updated on plan of care and expected duration. Pain ea level reassessed. Pt resting with eyes closed, respirations even and unlabored. Chest expansions even and symmetrical. No s/s of pain or discomfort noted at this time. 06:18 Reassessment: Patient and/or family updated on plan of care and expected duration. Pain ea level reassessed. Pt groggy. Awakes with verbal stimuli, pt denies pain, reports he is unable to urinate at this moment. Respirations even and unlabored. Chest expansions even and symmetrical. No s/s of pain or discomfort noted at this time. Patient denies pain at this time. 07:38 Reassessment: Patient appears in no apparent distress at this time. Pt resting at this sv time with eyes closed, respirations even and unlabored. 09:00 Reassessment: Patient appears in no apparent distress at this time. Pt appears to be sv resting with eyes closed at this time. Respirations even and unlabored. 10:00 Reassessment: Patient appears in no apparent distress at this time. Pt appears to be sv resting with eyes closed at this time. Respirations even and unlabored. 11:16 Reassessment: Patient appears in no apparent distress at this time. Patient and/or sv family updated on plan of care and expected duration. Pain level reassessed. Patient is alert, oriented x 3, equal unlabored respirations, skin warm/dry/pink. Pt awake and speaking on the phone. Pt is fidgety. Asking how long he will have to be here. Pt informed that we can start the transfer process once his urine results are back. Pt stated that he was hungry, ok to order food tray. Tray ordered. 12:20 Reassessment: Patient appears in no apparent distress at this time. Patient and/or sv family updated on plan of care and expected duration. Pain level reassessed. Patient is alert, oriented x 3, equal unlabored respirations, skin warm/dry/pink. Pt awake and is fidgity, stating he wants to know what the plan of care is. Pt asking if he can sign himself out. 12:37 Reassessment: Dr Hussein at the bedside speaking with the pt. sv 14:00 Reassessment: [facility] at the bedside. sv 14:33 Reassessment: Patient appears in no apparent distress at this time. Patient and/or sv family updated on plan of care and expected duration. Pain level reassessed. Patient is alert, oriented x 3, equal unlabored respirations, skin warm/dry/pink. 14:33 Reassessment: Pt given him his belongings including his cell phone. sv Vital Signs: 04:22 BP 128 / 84; Pulse 110; Resp 20; Temp 97.2; Pulse Ox 98% on R/A; Weight 95.25 kg; ea Height 5 ft. 9 in. (175.26 cm); Pain 0/10; 06:21 BP 118 / 72; Pulse 71; Resp 18; Pulse Ox 98% on R/A; ea 07:37 BP 106 / 71; Pulse 75; Resp 16; Pulse Ox 95% ; sv 08:33 BP 106 / 73; Pulse 68; Resp 16; Pulse Ox 96% ; sv 09:32 BP 114 / 66; Pulse 66; Resp 15; Pulse Ox 96% ; sv 10:00 BP 106 / 73; Pulse 70; Resp 15; Pulse Ox 97% ; sv 11:00 BP 141 / 92; Pulse 96; Resp 18; Pulse Ox 100% ; sv 12:00 BP 120 / 77; Pulse 92; Resp 20; Pulse Ox 97% ; sv 13:18 BP 127 / 80; Pulse 88; Resp 18; Pulse Ox 99% ; sv 04:22 Body Mass Index 31.01 (95.25 kg, 175.26 cm) ea ED Course: 04:20 Inserted saline lock: 20 gauge in left antecubital area, using aseptic technique. Blood ds4 collected. 04:22 Patient arrived in ED. ea 04:24 Triage completed. bb 04:26 Dakotah Bhatt MD is Attending Physician. tw4 04:26 Patient has correct armband on for positive identification. Bed in low position. Call ea light in reach. 04:26 Arm band placed on right wrist. Patient placed in an exam room, on a stretcher, on ea pulse oximetry. 04:36 Karime Guzman RN is Primary Nurse. ea 07:29 Primary Nurse role handed off by Karime Guzman RN sv 07:29 Hyacinth Richardson, PEDRO LUIS is Primary Nurse. sv 11:00 Urine collected: clean catch specimen. sv 11:16 Awaiting lab results. sv 14:33 No provider procedures requiring assistance completed. IV discontinued, intact, sv bleeding controlled, No redness/swelling at site. Pressure dressing applied. Administered Medications: 04:34 Drug: Ativan 1 mg Route: IVP; Site: left antecubital; lp1 05:12 Follow up: Response: No adverse reaction; Anxiety decreased ea 06:16 Drug: D50W 50 ml Route: IVP; Site: left antecubital; ea 07:00 Follow up: Response: No adverse reaction sv 12:56 Drug: Valium 5 mg Route: PO; sv 13:30 Follow up: Response: No adverse reaction sv Output: 11:15 Urine: 500ml (Voided); Total: 500ml. sv Outcome: 14:14 Discharge ordered by MD. rn 14:33 Discharged to home ambulatory, with family. sv 14:33 Condition: stable 14:33 Discharge instructions given to patient, Instructed on discharge instructions, follow up and referral plans. Demonstrated understanding of instructions, follow-up care. 14:33 Patient left the ED. sv Signatures: Hyacinth Richardson RN Mei Millard RN Placido Fernández MD MD rn Pena, Laura, RN RN lp1 Jarvis Jhaveri ds4 Karime Guzman RN RN ea Wadley, Terrence, MD MD tw4 Corrections: (The following items were deleted from the chart) 06:40 06:18 Reassessment: Patient and/or family updated on plan of care and expected ea duration. Pain level reassessed. Patient is alert, oriented x 3, equal unlabored respirations, skin warm/dry/pink. Patient denies pain at this time. ea 13:18 12:00 Pulse 92bpm; Resp 20bpm; Pulse Ox 97%; sv sv
--- NOTE | 2019-05-31 14:15 | EDPHYS ---
Physician Documentation [facility] Name: Ruddy Villa Age: 33 yrs Sex: Male : 1985 Arrival Date: 05/31/2019 Time: 04:22 Bed 6 Private MD: ED Physician Dakotah Bhatt HPI: 05/31 05:07 This 33 yrs old Male presents to ER via EMS with complaints of paranoid. tw4 05:07 The patient presents to the emergency department with paranoia, psychosis, has tw4 experienced auditory hallucinations, has experienced visual hallucinations. Onset: The symptoms/episode began/occurred today. Past psychiatric history: Prior diagnosis: no previous psychiatric diagnosis known. The patient presents with agitation, trouble concentrating. Associated signs and symptoms: The patient has no apparent associated signs or symptoms. Associated signs and symptoms: The patient has no apparent associated signs or symptoms. Patient's baseline: Neuro: alert and fully oriented. Historical: - Allergies: 04:26 cats; bb - Home Meds: 04:26 Unable to obtain [Active]; bb - PMHx: 04:26 Anxiety; Hypertension; PTSD; bb - PSHx: 04:26 Appendectomy; Hand - Right; bb - Immunization history:: Adult Immunizations unknown. - Social history:: Smoking status: unknown. - Ebola Screening: : No symptoms or risks identified at this time No symptoms or risks identified at this time. ROS: 05:07 Constitutional: Negative for fever, chills, and weight loss, Eyes: Negative for injury, tw4 pain, redness, and discharge, Cardiovascular: Negative for chest pain, palpitations, and edema, Respiratory: Negative for shortness of breath, cough, wheezing, and pleuritic chest pain, Abdomen/GI: Negative for abdominal pain, nausea, vomiting, diarrhea, and constipation, Back: Negative for injury and pain, MS/Extremity: Negative for injury and deformity, Skin: Negative for injury, rash, and discoloration. 05:07 Neuro: Positive for 05:07 Psych: Positive for anxiety, auditory hallucinations, visual hallucinations. Exam: 05:07 Constitutional: This is a well developed, well nourished patient who is awake, alert, tw4 and in no acute distress. Head/Face: Normocephalic, atraumatic. Eyes: Pupils equal round and reactive to light, extra-ocular motions intact. Lids and lashes normal. Conjunctiva and sclera are non-icteric and not injected. Cornea within normal limits. Periorbital areas with no swelling, redness, or edema. Chest/axilla: Normal chest wall appearance and motion. Nontender with no deformity. No lesions are appreciated. Cardiovascular: Regular rate and rhythm with a normal S1 and S2. No gallops, murmurs, or rubs. Normal PMI, no JVD. No pulse deficits. Respiratory: Lungs have equal breath sounds bilaterally, clear to auscultation and percussion. No rales, rhonchi or wheezes noted. No increased work of breathing, no retractions or nasal flaring. Abdomen/GI: Soft, non-tender, with normal bowel sounds. No distension or tympany. No guarding or rebound. No evidence of tenderness throughout. Back: No spinal tenderness. No costovertebral tenderness. Full range of motion. Vital Signs: 04:22 BP 128 / 84; Pulse 110; Resp 20; Temp 97.2; Pulse Ox 98% on R/A; Weight 95.25 kg; ea Height 5 ft. 9 in. (175.26 cm); Pain 0/10; 06:21 BP 118 / 72; Pulse 71; Resp 18; Pulse Ox 98% on R/A; ea 07:37 BP 106 / 71; Pulse 75; Resp 16; Pulse Ox 95% ; sv 08:33 BP 106 / 73; Pulse 68; Resp 16; Pulse Ox 96% ; sv 09:32 BP 114 / 66; Pulse 66; Resp 15; Pulse Ox 96% ; sv 10:00 BP 106 / 73; Pulse 70; Resp 15; Pulse Ox 97% ; sv 11:00 BP 141 / 92; Pulse 96; Resp 18; Pulse Ox 100% ; sv 12:00 BP 120 / 77; Pulse 92; Resp 20; Pulse Ox 97% ; sv 13:18 BP 127 / 80; Pulse 88; Resp 18; Pulse Ox 99% ; sv 04:22 Body Mass Index 31.01 (95.25 kg, 175.26 cm) ea MDM: 04:26 Patient medically screened. tw4 07:04 Differential diagnosis: drug withdrawal. acute psychotic break, depression. Data tw4 reviewed: vital signs, nurses notes. Data interpreted: Pulse oximetry: Interpretation: normal. Test interpretation: by ED physician or midlevel provider: ECG. Counseling: I had a detailed discussion with the patient and/or guardian regarding: the historical points, exam findings, and any diagnostic results supporting the discharge/admit diagnosis, lab results. ED course: Pt will need mobile psych assessment. 14:12 ED course: Pt sober, awake, fidgety but pleasant, evaluated by [facility] and deemed rn safe for outpt treatment, has appt. Patient + for meth and states found meth while doing laundry, not sure who it belongs to. Denies suicidal/homicidal ideation/hallucinations. . 12 04:28 Order name: Urine Drug Screen; Complete Time: 11:45 tw4 05/31 05:01 Order name: Basic Metabolic Panel; Complete Time: 07:03 EDMS 05/31 07:03 Interpretation: Normal except: K 3.2; BUN 20; GFR 84; GLUC 53. tw4 05/31 05:01 Order name: Liver (Hepatic) Function; Complete Time: 07:03 EDMS 05/31 07:03 Interpretation: Normal except: ALK 44; AST 47; BILID 0.3. tw4 05/31 05:01 Order name: Acetaminophen Level; Complete Time: 07:03 EDMS 05/31 07:03 Interpretation: Within normal limits: ACETA < 2.0. tw4 05/31 05:02 Order name: Alcohol Serum/Plasma; Complete Time: 07:03 EDMS 05/31 07:03 Interpretation: Within normal limits: ETOH 4. tw4 05/31 05:02 Order name: Salicylates Level; Complete Time: 07:03 EDMS 05/31 07:03 Interpretation: Within normal limits: TRISTA < 1.7. tw4 05/31 04:28 Order name: EKG; Complete Time: 05:11 tw4 05/31 04:28 Order name: EKG - Nurse/Tech; Complete Time: 05:00 tw4 05/31 04:28 Order name: IV Saline Lock; Complete Time: 04:33 tw4 05/31 04:28 Order name: Labs collected and sent; Complete Time: 04:33 tw4 05/31 04:28 Order name: Urine Dipstick-Ancillary (obtain specimen); Complete Time: 11:15 tw4 05/31 05:02 Order name: CBC with Automated Diff; Complete Time: 07:03 EDMS 05/31 07:03 Interpretation: Normal except: MN% 12.4. tw4 05/31 05:02 Order name: Protime (+INR); Complete Time: 07:03 EDMS 12 07:03 Interpretation: Within normal limits: PT 13.5. tw4 12 05:02 Order name: PTT, Activated Partial Thromb; Complete Time: 07:03 EDMS 12 07:03 Interpretation: Within normal limits: PTT 32.2. tw4 05/31 11:08 Order name: Diet Heart Healthy; Complete Time: 11:08 sv 12 12:44 Order name: Diet Regular; Complete Time: 12:45 ss EC:04 Rate is 81 beats/min. Rhythm is regular. QRS [place] is Normal. MD interval is normal. QRS tw4 interval is normal. QT interval is normal. No Q waves. T waves are Normal. No ST changes noted. Clinical impression: Normal ECG. Interpreted by me. Reviewed by me. Administered Medications: 04:34 Drug: Ativan 1 mg Route: IVP; Site: left antecubital; lp1 05:12 Follow up: Response: No adverse reaction; Anxiety decreased ea 06:16 Drug: D50W 50 ml Route: IVP; Site: left antecubital; ea 07:00 Follow up: Response: No adverse reaction sv 12:56 Drug: Valium 5 mg Route: PO; sv 13:30 Follow up: Response: No adverse reaction sv Disposition: 05/31/19 14:14 Discharged to Home. Impression: Restlessness and agitation. - Condition is Stable. - Discharge Instructions: Generalized Anxiety Disorder. - Medication Reconciliation Form, Thank You Letter, Antibiotic Education, Prescription Opioid Use form. - Follow up: Private Physician; When: As needed; Reason: Recheck today's complaints, Re-evaluation by your physician. - Problem is new. - Symptoms have improved. Signatures: Dispatcher [employer] Hyacinth Samano RN Mei Millard RN Placido Fernández MD MD rn Pena, Laura, RN RN lp1 Karime Guzman RN RN ea Wadley, Terrence, MD MD tw4 Corrections: (The following items were deleted from the chart) 05:09 05:07 Constitutional: Negative for fever, chills, and weight loss, Eyes: Negative for tw4 injury, pain, redness, and discharge, Cardiovascular: Negative for chest pain, palpitations, and edema, Respiratory: Negative for shortness of breath, cough, wheezing, and pleuritic chest pain, Abdomen/GI: Negative for abdominal pain, nausea, vomiting, diarrhea, and constipation, Back: Negative for injury and pain, MS/Extremity: Negative for injury and deformity, Skin: Negative for injury, rash, and discoloration, Neuro: Negative for headache, weakness, numbness, tingling, and seizure, tw4 05:17 05:11 ACETAMINOPHEN+C.LAB.BRZ ordered. EDMS EDMS 05:17 05:11 BASIC METABOLIC PANEL+C.LAB.BRZ ordered. EDMS EDMS 05:17 05:11 CBC+H.LAB.BRZ ordered. EDMS EDMS 05:17 05:11 ETHANOL+C.LAB.BRZ ordered. EDMS EDMS 05:17 05:11 HEPATIC FUNCTION+C.LAB.BRZ ordered. EDMS EDMS 05:18 05:11 PROTIME (+INR)+COAG.LAB.BRZ ordered. EDMS EDMS 05:18 05:11 PTT, ACTIVATED+COAG.LAB.BRZ ordered. EDMS EDMS 05:18 05:11 SALICYLATE+C.LAB.BRZ ordered. EDMS EDMS 14:33 14:14 05/31/2019 14:14 Discharged to Home. Impression: Restlessness and agitation. sv Condition is Stable. Forms are Medication Reconciliation Form, Thank You Letter, Antibiotic Education, Prescription Opioid Use. Follow up: Private Physician; When: As needed; Reason: Recheck today's complaints, Re-evaluation by your physician. Problem is new. Symptoms have improved. rn
[2019-05-31 15:32] VITALS: TEMP 97.2
[2019-05-31 15:45] VITALS: BP 127/80; O2SAT 99
== END 2019-05-31 14:33 | disposition home or self-care (01) ==
LOC: ER 04:21
DX: R45.1 Restlessness and agitation (principal); I10 Essential (primary) hypertension; J30.81 Allergic rhinitis due to animal (cat) (dog) hair and dander
CPT/HCPCS: 36415; 80048; 80076; 80307; 80320; 80329; 85025; 85610; 85730; 93005; 96374; 96375; 99284

== ENCOUNTER 2019-06-14 16:11 | Emergency (ER) | payer OTHER ==
[2019-06-14 16:45] LABS: Absolute Lymphocytes (CBC) 1.2 K/uL (0.7-4.9); Hematocrit 39.9 % (39.6-49.0); Lymphocytes % 24.3 % (15.3-44.8); MPV 8.5 fL (7.6-11.3); RBC Red Blood Cell Count 4.79 M/uL (4.33-5.43)
[2019-06-14 16:52] LABS: Protime INR 1.06
[2019-06-14] MEDS ORDERED: NA CHLORIDE 0.9% 1,000 ML ONE (16:53)
--- NOTE | 2019-06-14 17:01 | RAD REPORT ---
EXAM DESCRIPTION: RAD - Chest Single View - 06/14/2019 4:48 pm CLINICAL HISTORY: Chest pain COMPARISON: None. TECHNIQUE: AP portable chest image was obtained 1636 hours . FINDINGS: Lung volumes are relatively low. No focal mass or consolidation. Low lung volumes accentua te interstitial pattern potentially masking minimal edema or infiltrate. Heart and vasculature are no rmal. No measurable pleural effusion and no pneumothorax. No acute bony abnormality seen. No acute ao rtic findings suspected. IMPRESSION: No focal mass or consolidation. Low lung volumes could mask minimal interstitial edema or infiltrate.
[2019-06-14] MEDS ORDERED: ASPIRIN 81 MG CHEWABLE TABLET ONE (17:08)
[2019-06-14] MEDS ORDERED: NITROGLYCERIN 0.4 MG/TAB SL ONE (17:09)
[2019-06-14] MEDS ORDERED: ONDANSETRON 4 MG/2 ML VIAL ONE (17:49)
[2019-06-14 18:07] LABS: ALT/SGPT 44 U/L (12-78); AST/SGOT 22 U/L (15-37); Albumin 4.2 g/dL (3.4-5.0); Alkaline Phosphatase 44 U/L (45-117); BUN Blood Urea Nitrogen 8 mg/dL (7-18); Bicarbonate 21 mmol/L (21-32); Bilirubin Direct 0.3 mg/dL (0-0.2); Glucose Level 102 mg/dL (74-106); Potassium 3.3 mmol/L (3.5-5.1); Protein, Total 7.2 g/dL (6.4-8.2); Sodium Level 141 mmol/L (136-145); Troponin (Emerg Dept Use Only) < 0.02 ng/mL (0.0-0.045)
[2019-06-14] MEDS ORDERED: PROMETHAZINE 25 MG/ML VIAL ONE ×2 (18:26→18:27)
[2019-06-14] MEDS ORDERED: NA CHLORIDE 0.9% 500 ML ONE (18:26)
[2019-06-14 19:31] LABS: Barbiturates NEGATIVE (NEGATIVE); Benzodiazepines POSITIVE (NEGATIVE); Cocaine NEGATIVE (NEGATIVE); METHAMPHETAM POSITIVE (NEGATIVE); Methadone NEGATIVE (NEGATIVE); Opiates NEGATIVE (NEGATIVE); Phencyclidine NEGATIVE (NEGATIVE); THC Cannibis POSITIVE (NEGATIVE)
--- NOTE | 2019-06-14 19:55 | ER ---
Nurse's Notes [facility] Name: Ruddy Villa Age: 33 yrs Sex: Male : 1985 Arrival Date: 06/14/2019 Time: 16:12 Bed 19 Private MD: Diagnosis: Drug Abuse;Chest pain, unspecified;Vomiting Presentation: 06/14 16:17 Presenting complaint: Patient states: my chest is hurting. and I can't breathe. rv Presenting complaint: EMS states: he called in for difficulty breathing. when we got there he is slightly tachycardic at 106 and tachypneic. complaining of headache. he used dope, as per patient, yesterday but not today. denies use of other drugs. blood sugar is 112. noticed pinpoint pupils. Transition of care: patient was not received from another setting of care. Onset of symptoms was June 14, 2019 at 15:00. Risk Assessment: Do you want to hurt yourself or someone else? Patient reports no desire to harm self or others. Initial Sepsis Screen: Does the patient meet any 2 criteria? No. Patient's initial sepsis screen is negative. Does the patient have a suspected source of infection? No. Patient's initial sepsis screen is negative. Care prior to arrival: None. 16:17 Method Of Arrival: EMS: [facility] rv 16:17 Acuity: ANASTASIYA 3 rv Historical: - Allergies: 16:22 cats; rv - PMHx: 16:22 Anxiety; Hypertension; PTSD; rv - PSHx: 16:22 Appendectomy; rv - Immunization history:: Adult Immunizations unknown. - Social history:: Smoking status: Patient uses tobacco products. - Ebola Screening: : No symptoms or risks identified at this time. Screenin:25 Abuse screen: Denies threats or abuse. Denies injuries from another. Nutritional rv screening: No deficits noted. Tuberculosis screening: No symptoms or risk factors identified. Fall Risk None identified. Assessment: 16:23 General: Appears in no apparent distress. Behavior is crying. Pain: Complains of pain rv in chest. Neuro: Level of Consciousness is awake, alert, obeys commands, Oriented to person, place, time, situation. Cardiovascular: Patient's skin is warm and dry. Respiratory: Airway is patent Respiratory pattern is hyperventilation. GI: No signs and/or symptoms were reported involving the gastrointestinal system. : No signs and/or symptoms were reported regarding the genitourinary system. EENT: No signs and/or symptoms were reported regarding the EENT system. Derm: Skin is intact. Musculoskeletal: No signs and/or symptoms reported regarding the musculoskeletal system. 18:58 Reassessment: No changes from previously documented assessment. Patient and/or family rv updated on plan of care and expected duration. Pain level reassessed. Patient is alert, oriented x 3, equal unlabored respirations, skin warm/dry/pink. patient updated on the plan of care. vomiting decreased after giving Phenergan. awaiting result on the urine exam. Vital Signs: 16:21 BP 132 / 94; Pulse 110; Resp 24; Temp 97.2; Pulse Ox 100% on R/A; Weight 72.57 kg; rv Height 5 ft. 9 in. (175.26 cm); 17:04 BP 142 / 83; Pulse 97; Resp 26; Pulse Ox 100% on R/A; rv 18:00 BP 117 / 79; Pulse 74; Resp 17; Pulse Ox 100% ; rv 18:30 BP 125 / 69; Pulse 72; Resp 17; Pulse Ox 100% on R/A; rv 19:00 BP 117 / 78; Pulse 76; Resp 20; Pulse Ox 99% on R/A; rv 20:02 BP 118 / 76; Pulse 74; Resp 17; Pulse Ox 100% on R/A; rv 16:21 Body Mass Index 23.63 (72.57 kg, 175.26 cm) rv ED Course: 16:12 Patient arrived in ED. iw 16:16 Alexandr Brice PA is PHCP. jr8 16:16 Miller Mcdowell MD is Attending Physician. jr8 16:21 Triage completed. rv 16:24 Maintain EMS IV. Dressing intact. Good blood return noted. Site clean \T\ dry. Gauge \T\ rv site: G18 RIGHT AC. 16:25 Patient has correct armband on for positive identification. Placed in gown. Bed in low rv position. Call light in reach. Side rails up X2. psychology physician on. Pulse ox on. NIBP on. 16:25 Patient placed in the treatment room, on a stretcher, on claims supervisor, on pulse rv oximetry, Patient notified of wait time. 16:35 Meir Pennington, PEDRO LUIS is Primary Nurse. rv 20:03 No provider procedures requiring assistance completed. IV discontinued, intact, rv bleeding controlled, No redness/swelling at site. Pressure dressing applied. Administered Medications: 17:00 Drug: NS 0.9% 1000 ml Route: IV; Rate: 1000 ml; Site: right antecubital; rv 17:56 Follow up: IV Status: Completed infusion; IV Intake: 1000ml rv 17:10 Drug: Aspirin Chewable Tablet 324 mg Route: PO; rv 17:56 Follow up: Response: No adverse reaction rv 17:10 Drug: Nitroglycerin 0.4 mg Route: Sublingual; rv 17:56 Follow up: Response: No adverse reaction rv 17:56 Drug: Zofran 2 mg Route: IVP; Site: right antecubital; rv 18:31 Follow up: Response: Nausea unchanged rv 18:30 Drug: Phenergan 12.5 mg Route: IVP; Site: right antecubital; rv 19:02 Follow up: Response: No adverse reaction rv Intake: 17:56 IV: 1000ml; Total: 1000ml. rv Outcome: 19:53 Discharge ordered by MD. bermudez 20:03 Discharged to home ambulatory, with family. rv 20:03 Condition: good 20:03 Discharge instructions given to patient, Instructed on discharge instructions, follow up and referral plans. Demonstrated understanding of instructions, follow-up care. 20:37 Patient left the ED. rv Signatures: Huma Baum RN RN iw Roszak, Josh, PA PA jr8 Meir Pennington RN RN rv Corrections: (The following items were deleted from the chart) 16:22 16:17 Presenting complaint: EMS states: he called in for difficulty breathing. when we rv got there he is slightly tachycardic at 106 and tachypneic. complaining of headache. he used dope, as per patient, yesterday but not today. denies use of other drugs. blood sugar is 112. rv
--- NOTE | 2019-06-14 19:55 | EDPHYS ---
Physician Documentation [facility] Name: Ruddy Villa Age: 33 yrs Sex: Male : 1985 Arrival Date: 06/14/2019 Time: 16:12 Bed 19 Private MD: ED Physician Miller Mcdowell HPI: 06/14 17:23 This 33 yrs old Male presents to ER via EMS with complaints of chest pain. jr8 17:23 The patient or guardian reports chest pain that is located primarily in the anterior jr8 chest wall. The pain does not radiate. Associated signs and symptoms: Pertinent positives: shortness of breath. The chest pain is described as sharp. Duration: The patient or guardian reports a single episode, that is still ongoing. Modifying factors: The symptoms are alleviated by nothing. the symptoms are aggravated by nothing. Severity of pain: At its worst the pain was moderate in the emergency department the pain is unchanged. The patient has not experienced similar symptoms in the past. The patient has not recently seen a physician. Patient stated that he used "dope" yesterday. Stated that about 1 hour ago started to have chest pain . Historical: - Allergies: 16:22 cats; rv - PMHx: 16:22 Anxiety; Hypertension; PTSD; rv - PSHx: 16:22 Appendectomy; rv - Immunization history:: Adult Immunizations unknown. - Social history:: Smoking status: Patient uses tobacco products. - Ebola Screening: : No symptoms or risks identified at this time. ROS: 17:23 Eyes: Negative for injury, pain, redness, and discharge, ENT: Negative for injury, jr8 pain, and discharge, Neck: Negative for injury, pain, and swelling, Abdomen/GI: Negative for abdominal pain, nausea, vomiting, diarrhea, and constipation, Back: Negative for injury and pain, MS/Extremity: Negative for injury and deformity, Skin: Negative for injury, rash, and discoloration, Neuro: Negative for headache, weakness, numbness, tingling, and seizure. 17:23 Cardiovascular: Positive for chest pain, Negative for edema, orthopnea, palpitations, paroxysmal nocturnal dyspnea. 17:23 Respiratory: Positive for shortness of breath. Exam: 17:23 Eyes: Pupils equal round and reactive to light, extra-ocular motions intact. Lids and jr8 lashes normal. Conjunctiva and sclera are non-icteric and not injected. Cornea within normal limits. Periorbital areas with no swelling, redness, or edema. ENT: Nares patent. No nasal discharge, no septal abnormalities noted. Tympanic membranes are normal and external auditory canals are clear. Oropharynx with no redness, swelling, or masses, exudates, or evidence of obstruction, uvula midline. Mucous membranes moist. Neck: Trachea midline, no thyromegaly or masses palpated, and no cervical lymphadenopathy. Supple, full range of motion without nuchal rigidity, or vertebral point tenderness. No Meningismus. Cardiovascular: Regular rate and rhythm with a normal S1 and S2. No gallops, murmurs, or rubs. Normal PMI, no JVD. No pulse deficits. Respiratory: Lungs have equal breath sounds bilaterally, clear to auscultation and percussion. No rales, rhonchi or wheezes noted. Mild tachypnea present Abdomen/GI: Soft, non-tender, with normal bowel sounds. No distension or tympany. No guarding or rebound. No evidence of tenderness throughout. Back: No spinal tenderness. No costovertebral tenderness. Full range of motion. Skin: Warm, dry with normal turgor. Normal color with no rashes, no lesions, and no evidence of cellulitis. MS/ Extremity: Pulses equal, no cyanosis. Neurovascular intact. Full, normal range of motion. Neuro: Awake and alert, GCS 15, oriented to person, place, time, and situation. Cranial nerves II-XII grossly intact. Motor strength 5/5 in all extremities. Sensory grossly intact. Cerebellar exam normal. Normal gait. Vital Signs: 16:21 BP 132 / 94; Pulse 110; Resp 24; Temp 97.2; Pulse Ox 100% on R/A; Weight 72.57 kg; rv Height 5 ft. 9 in. (175.26 cm); 17:04 BP 142 / 83; Pulse 97; Resp 26; Pulse Ox 100% on R/A; rv 18:00 BP 117 / 79; Pulse 74; Resp 17; Pulse Ox 100% ; rv 18:30 BP 125 / 69; Pulse 72; Resp 17; Pulse Ox 100% on R/A; rv 19:00 BP 117 / 78; Pulse 76; Resp 20; Pulse Ox 99% on R/A; rv 20:02 BP 118 / 76; Pulse 74; Resp 17; Pulse Ox 100% on R/A; rv 16:21 Body Mass Index 23.63 (72.57 kg, 175.26 cm) rv MDM: 16:22 Patient medically screened. 8 19:52 Data reviewed: vital signs, nurses notes, lab test result(s), EKG, radiologic studies, jr8 plain films. Data interpreted: Pulse oximetry: on room air is 99 %. Interpretation: normal. Counseling: I had a detailed discussion with the patient and/or guardian regarding: the historical points, exam findings, and any diagnostic results supporting the discharge/admit diagnosis, lab results, radiology results, the need for outpatient follow up, a family practitioner, to return to the emergency department if symptoms worsen or persist or if there are any questions or concerns that arise at home. 19:54 ED course: Patients vitals normalized. No more vomiting. Feeling better. Will d/c home .[facility] [place] 20:16 ED course: Patient started to hurt in abdomen again. Told him we need to do CT scan of [facility] [place] his abdomen but does not want us to. Stated that if he continues to get worse would come back. Patients abdomen reexamined. Soft with with mild epigastric tenderness. No rigidity or guarding. Tried to get him to stay but would not. 06/14 16:23 Order name: Acetaminophen [facility] [place] 06/14 16:23 Order name: Basic Metabolic Panel [facility] [place] 06/14 16:23 Order name: CBC with Diff [facility] [place] 06/14 16:23 Order name: ETOH Level [facility] [place] 06/14 16:23 Order name: Hepatic Function [facility] [place] 06/14 16:23 Order name: PT-INR [facility] [place] 06/14 16:23 Order name: Ptt, Activated [facility] [place] 06/14 16:23 Order name: Salicylate [facility] [place] 06/14 16:23 Order name: Urine Drug Screen [facility] [place] 06/14 16:23 Order name: Troponin (emerg Dept Use Only) [facility] [place] 06/14 16:55 Order name: Protime (+INR); Complete Time: 17:04 EDMS 06/14 16:55 Order name: PTT, Activated Partial Thromb; Complete Time: 17:04 EDDC 06/14 16:56 Order name: CBC with Automated Diff; Complete Time: 17:04 EDMS 06/14 17:12 Order name: Alcohol Serum/Plasma; Complete Time: 17:28 EDMS 06/14 16:23 Order name: EKG; Complete Time: 16:24 [facility] [place] 06/14 16:23 Order name: XRAY Chest (1 view) [facility] [place] 06/14 17:04 Order name: RAD; Complete Time: 17:04 EDMS 06/14 17:27 Order name: Salicylates Level; Complete Time: 17:28 EDMS 06/14 18:11 Order name: Basic Metabolic Panel; Complete Time: 18:13 EDMS 06/14 18:11 Order name: Liver (Hepatic) Function; Complete Time: 18:13 EDMS 06/14 18:11 Order name: Troponin (Emerg Dept Use Only); Complete Time: 18:13 EDMS 06/14 18:11 Order name: Acetaminophen Level; Complete Time: 18:13 EDMS 06/14 18:57 Order name: Urine Dipstick--Ancillary (enter results) 06/14 19:31 Order name: Urine Drug Screen; Complete Time: 19:50 EDMS 06/14 20:31 Order name: Urine Dipstick-Ancillary; Complete Time: 20:31 EDMS 06/14 16:23 Order name: EKG - Nurse/Tech; Complete Time: 16:35 [facility] [place] 06/14 16:23 Order name: IV Saline Lock; Complete Time: 16:35 [facility] [place] 06/14 16:23 Order name: Labs collected and sent; Complete Time: 16:35 [facility] [place] 06/14 16:23 Order name: Urine Dipstick-Ancillary (obtain specimen); Complete Time: 16:36 [facility] [place] Administered Medications: 17:00 Drug: NS 0.9% 1000 ml Route: IV; Rate: 1000 ml; Site: right antecubital; rv 17:56 Follow up: IV Status: Completed infusion; IV Intake: 1000ml rv 17:10 Drug: Aspirin Chewable Tablet 324 mg Route: PO; rv 17:56 Follow up: Response: No adverse reaction rv 17:10 Drug: Nitroglycerin 0.4 mg Route: Sublingual; rv 17:56 Follow up: Response: No adverse reaction rv 17:56 Drug: Zofran 2 mg Route: IVP; Site: right antecubital; rv 18:31 Follow up: Response: Nausea unchanged rv 18:30 Drug: Phenergan 12.5 mg Route: IVP; Site: right antecubital; rv 19:02 Follow up: Response: No adverse reaction rv Disposition: 21:23 Co-signature as Attending Physician, Miller Mcdowell MD I agree with the assessment and wa plan of care. Disposition: 06/14/19 19:53 Discharged to Home. Impression: Drug Abuse, Chest pain, unspecified, Vomiting. - Condition is Stable. - Discharge Instructions: Nonspecific Chest Pain, Drug Overdose, Drug Toxicity. - Medication Reconciliation Form, Thank You Letter, Antibiotic Education, Prescription Opioid Use form. - Follow up: Private Physician; When: 5 - 6 days; Reason: Recheck today's complaints, Continuance of care, Re-evaluation by your physician. - Problem is new. - Symptoms have improved. Signatures: Dispatcher [employer] EDMS Alexandr Brice PA PA jr8 Miller Mcdowell MD MD wa Vicente, Ronaldo, RN RN rv Corrections: (The following items were deleted from the chart) 19:54 19:53 06/14/2019 19:53 Discharged to Home. Impression: Drug Abuse; Chest pain, jr8 unspecified. Condition is Stable. Forms are Medication Reconciliation Form, Thank You Letter, Antibiotic Education, Prescription Opioid Use. Follow up: Private Physician; When: 5 - 6 days; Reason: Recheck today's complaints, Continuance of care, Re-evaluation by your physician. Problem is new. Symptoms have improved. jr8 20:37 19:54 06/14/2019 19:53 Discharged to Home. Impression: Drug Abuse; Chest pain, rv unspecified; Vomiting. Condition is Stable. Discharge Instructions: Nonspecific Chest Pain, Drug Overdose, Drug Toxicity. Forms are Medication Reconciliation Form, Thank You Letter, Antibiotic Education, Prescription Opioid Use. Follow up: Private Physician; When: 5 - 6 days; Reason: Recheck today's complaints, Continuance of care, Re-evaluation by your physician. Problem is new. Symptoms have improved. jr8
[2019-06-14 20:29] LABS: Urine Blood NEGATIVE (NEG); Urine Glucose NEGATIVE (NEG); Urine Protein NEGATIVE (NEG); Urine Specific Gravity 1.015 (1.005-1.030); Urine pH >8.5 (5.0-7.0)
[2019-06-14 20:43] VITALS: TEMP 97.2
[2019-06-14 20:50] VITALS: BP 118/76; O2SAT 100
--- NOTE | 2019-06-15 07:53 | EKG ---
Test Date: 2019-06-14 Test Time: 16:34:38 Packer Inspector: TM MEASUREMENT RESULTS: Intervals: Rate: 99 KS: 148 QRSD: 102 QT: 390 QTc: 500 [place]: P: 64 [place]: 148 QRS: 80 T: 79 INTERPRETIVE STATEMENTS: Poor data quality, interpretation may be adversely affected Normal sinus rhythm Prolonged QT Abnormal ECG Compared to ECG 05/31/2019 04:57:24 Prolonged QT interval now present Electronically Signed On 06-15-19 07:52:53 LABORATORY DIRECTOR by Clovis Cosme
--- NOTE | 2019-06-15 07:53 | EKG ---
Test Date: 2019-06-14 Test Time: 16:35:28 [employer] Sheet Metal Installer Helper: TM MEASUREMENT RESULTS: Intervals: Rate: 97 [place]: 148 QRSD: 104 QT: 402 QTc: 510 [place]: P: 65 [place]: 148 QRS: 75 T: 73 INTERPRETIVE STATEMENTS: Normal sinus rhythm Nonspecific T wave abnormality Prolonged QT Abnormal ECG Compared to ECG 06/14/2019 16:34:38 T-wave abnormality now present Electronically Signed On 06-15-19 07:52:46 PERSONAL LINES APPRAISER by Clovis Cosme
== END 2019-06-14 20:37 | disposition home or self-care (01) ==
LOC: ER 16:11
DX: F19.10 Other psychoactive substance abuse, uncomplicated (principal); I10 Essential (primary) hypertension; F43.10 Post-traumatic stress disorder, unspecified; J30.81 Allergic rhinitis due to animal (cat) (dog) hair and dander; Z72.0 Tobacco use
CPT/HCPCS: 96361; 93005 ×2; 85025; 80048; 36415; 80320; 80329 ×2; 85610; 80076; 80307 ×8; 85730; 81003; 84484; 71045; 96375; 96374; 99284; J2550 ×2; J7040; J7030; J2405